=== PATIENT | female | born 1980 | race Caucasian/White ===

== ENCOUNTER → 2018-06-04 | Outpatient (CLI) | payer BC ==
[~2018-06-04] MED LIST: DOXY150T6 PO; METR-1 PO; NO ROUTINE MEDS; ONDA4TAB PO; PER PO
--- NOTE | 2018-06-04 15:33 | RADIOLOGY IMAGING REPORT ---
[place] [facility] [place] NAME: MENDY DURHAM : [id number] MR: [id number] V: [id number] EXAM DATE: ORDERING PHYSICIAN: DOMINGO PARRISH TECHNOLOGIST: Diamante Castle PROCEDURE:BILATERAL DIAGNOSTIC DIGITAL MAMMOGRAM WITH CAD ASSISTED INTERPRETATION & 3D TOMOSYNTHESIS COMPARISON:None. INDICATIONS:right breast lump, strong family history of breast cancer FINDINGS: Small amount of fibroglandular tissue is seen throughout the breasts. There is no demonstration of malignant appearing mass, malignant appearing calcifications or other secondary sign of malignancy in either breast. Today's Right breast Ultrasound did demonstrate 2 well circumscribed partially cystic complex nodules in the 12 & 1 o'clock positions of the Right breast. 6 month follow-up Right breast Ultrasound is recommended unless clinical findings warrant more immediate attention. DIAGNOSTIC CATEGORY 3--PROBABLY BENIGN FINDING. RECOMMENDATIONS: SIX MONTH FOLLOW-UP ULTRASOUND: RIGHT BREAST. IMPRESSION: BIRADS 3: Probably benign finding. A 6 month follow-up Right breast Ultrasound is recommended. Dictated by: Shahnaz Rivera M.D. on 06/04/2018 at 15:19 Transcribed by: JOSEPH on 06/04/2018 at 15:29 Approved by: Shahnaz Rivera M.D. on 06/04/2018 at 15:32 [facility]
--- NOTE | 2018-06-08 09:06 | RADIOLOGY IMAGING REPORT ---
FACILITY: [facility] PATIENT NAME: MENDY DURHAM : [id number] MR: [id number] V: [id number] EXAM DATE: ORDERING PHYSICIAN: DOMINGO PARRISH TECHNOLOGIST: Duncan Carreon RDMS, KARIME PROCEDURE:US RIGHT BREAST COMPLETE COMPARISON:None. INDICATIONS:right breast lump 12 o'clock position FINDINGS: In the 12 o'clock position of the Right breast 4cm from the nipple there is a 9.7 x 6.2 x 7.5mm well circumscribe ovoid complex lesion with both echogenic solid and cystic components and mild acoustic enhancement. In the 1 o'clock position of the Right breast 5cm from the nipple there is a 5.6 x 6.3 x 4mm ovoid hypoechoic partially cystic structure. In the 4 o'clock position of the Right breast 2cm from the nipple is a 5mm cyst. In the 10 o'clock position of the Right breast is a mildly prominent duct. DIAGNOSTIC CATEGORY 3--PROBABLY BENIGN FINDING. RECOMMENDATIONS: SIX MONTH FOLLOW-UP ULTRASOUND: RIGHT BREAST. IMPRESSION: BIRADS 3: Probably benign finding. In the 12 & 1 o'clock positions of the Right breast there are 2 well circumscribed partially cystic complex nodules with acoustic enhancement for which a 6 month follow-up Right breast Ultrasound is recommended unless clinical findings warrant more immediate attention. Dictated by: Shahnaz Rivera M.D. on 06/04/2018 at 15:16 Transcribed by: JOSEPH on 06/04/2018 at 15:42 Approved by: Shahnaz Rivera M.D. on 06/08/2018 at 9:05 [facility]
== END ==
LOC: MAMO 00:43
PROVIDERS: ATTEND Nurse Practitioner Family
DX: N63.10 Unspecified lump in the right breast, unspecified quadrant (principal)
CPT/HCPCS: 77062; 77066

== ENCOUNTER → 2019-01-06 | Outpatient (CLI) | payer BC ==
--- NOTE | 2019-01-07 12:59 | RADIOLOGY IMAGING REPORT ---
[place] [facility] [place] MENDY DURHAM : [id number] MR: [id number] V: [id number] EXAM DATE: [id number] ORDERING PHYSICIAN: DOMINGO PARRISH TECHNOLOGIST: Kathrine Iglesias RDMS PROCEDURE:US RIGHT BREAST COMPARISON:Right breast Ultrasound 06/04/18. INDICATIONS:6 MONTH F/U FINDINGS: The previously noted ovoid complex lesion with echogenic solid and cystic components in the 12 o'clock position of the Right breast identified on the prior study is not identified currently. The additional ovoid hypoechoic partially cystic structure in the 1 o'clock position of the Right breast also not identified currently. Incidentally noted is a cluster of small cysts in the 10 o'clock position of the Right breast. DIAGNOSTIC CATEGORY 1--NEGATIVE. RECOMMENDATIONS: CLINICAL EVALUATION. IMPRESSION: BIRADS 1: Negative. Previously noted complex lesions in the 12 & 1 o'clock positions of the Right breast are not identified on the current examination therefore clinical follow-up recommended for patient's follow-up if these lesions are palpable. Dictated by: Shahnaz Rivera M.D. on 01/06/2019 at 16:12 Transcribed by: JOSEPH on 01/07/2019 at 10:45 Approved by: Shahnaz Rivera M.D. on 01/07/2019 at 12:58 [facility]
== END ==
LOC: US 12-21 01:12
PROVIDERS: ATTEND Nurse Practitioner Family
DX: N63.10 Unspecified lump in the right breast, unspecified quadrant (principal)